=== PATIENT | female | born 1990 | race Caucasian/White ===

== ENCOUNTER 2019-10-22 10:04 | Observation (INO) | payer OTHER ==
[2019-10-22] MEDS ORDERED: Ephedrine Sulfate 50 MG/ML IV PRN (12:16)
[2019-10-22] MEDS ORDERED: Lactated Ringers 1,000 ML IV ONE (12:16)
[2019-10-22] MEDS ORDERED: OB EPIDURAL NAROPIN/SUFENTANIL IN NACL EPIDURAL PRN (12:16)
[2019-10-22] MEDS ORDERED: PITOCIN 30 UNITS/ LR 500 ML 30 UNITS/500 ML IV.SOLN. IV SCH (12:30)
[2019-10-22 12:38] LABS: Hematocrit 36.9 % (35-47); Hemoglobin 11.7 gm/dl (12.0-16.0); Mean Cell Volume 87.9 fl (78-100); Mean Corpuscular Hemoglobin 27.9 pg (26-32); Mean Corpuscular Hgb Concent. 31.7 g/dl (32-36); Mean Platelet Volume 11.6 fl (7.5-11.0); Platelet Count 242 K/mm3 (150-450); Red Cell Distribution Width 15.1 % (11.5-14.0)
[2019-10-22 12:58] VITALS: BP 123/75
[2019-10-22 14:17] LABS: Amphetamine,Urine NEGATIVE (NEGATIVE); Barbiturate,Urine NEGATIVE (NEGATIVE); Benzodiazepine,Urine NEGATIVE (NEGATIVE); Cocaine,Urine NEGATIVE (NEGATIVE); Methadone,Urine NEGATIVE (NEGATIVE); Opiate,Urine NEGATIVE (NEGATIVE); PCP,Urine NEGATIVE (NEGATIVE); THC,Urine NEGATIVE (NEGATIVE)
[2019-10-22 15:37] VITALS: PULSE 87
[2019-10-22 15:41] LABS: BAND 1 % (0.0-2.0); Lymphocytes 18 % (24-44); Monocyte 7 % (0.0-12.0); Neutrophils 74 % (36.0-66.0); Platelet Estimate NORMAL (NORMAL); Total Cells Counted 100
== END 2019-10-22 16:12 | disposition home or self-care (01) ==
LOC: MED SURG 10:04 → OB 10:05
PROVIDERS: ADMIT Family Medicine; ATTEND Family Medicine
DX: Z34.83 Encounter for supervision of other normal pregnancy, third trimester (principal)
CPT/HCPCS: 36415; 80307; 84112; 85025; 87340; G0378

== ENCOUNTER 2019-10-23 16:19 | Observation (INO) | payer OTHER ==
[2019-10-23 17:44] LABS: Appearance CLOUDY (CLEAR); Bacteria FEW /HPF (NEGATIVE); Bilirubin NEGATIVE (NEGATIVE); Blood LARGE Ery/ul (0-5); Epithelial Cells PACKED /HPF (FEW); Glucose NEGATIVE (NEGATIVE); Ketones TRACE (NEGATIVE); Leukocyte Esterase MODERATE (NEGATIVE); Mucus SLIGHT /HPF (NEGATIVE); Nitrite NEGATIVE (NEGATIVE); Protein,Urine Dip 100 (Negative); RBC 51-100 /HPF (0-2); Urobilinogen 2 mg/dL (0-1); WBC 51-100 /HPF (0-5)
[2019-10-23] MEDS ORDERED: Lactated Ringers 500 ML IV ONE ×2 (18:21→18:22)
[2019-10-23 20:39] VITALS: BP 118/58; PULSE 96; O2SAT 97
--- NOTE | 2019-10-24 08:42 | XRAY ---
Indication: Abdomen pain. Bleeding. 2-dimensional OB ultrasound performed. Comparison: None There is a single viable intrauterine in cephalic presentation. heart rate 126 bpm. Placenta is left lateral without abnormal retroplacental fluid. BPD measures 9.19 cm corresponding to 37 weeks 2 days. HC measures 32.49 cm corresponding to 36 weeks 6 days. AC measures 32.77 cm corresponding to 36 weeks 5 days. FL measures 7.03 cm corresponding to 36 weeks 0 days. JERICHO is 15.6 cm. Impression: Single viable intrauterine with mean gestational age 36 weeks 5 days. No acute findings. Comment: Preliminary report was given.
== END 2019-10-23 21:38 | disposition home or self-care (01) ==
LOC: OB 16:19
PROVIDERS: ADMIT Family Medicine; ATTEND Family Medicine
DX: Z34.83 Encounter for supervision of other normal pregnancy, third trimester (principal)
CPT/HCPCS: 59025; 76816; 81001; 87086; G0378

== ENCOUNTER 2019-10-25 09:44 | Inpatient (IN) | payer OTHER ==
[2019-10-25] MEDS ORDERED: XYLOCAINE 1% HCL 20 ML MDV IJ PRN (14:03)
[2019-10-25] MEDS ORDERED: Ephedrine Sulfate 50 MG/ML IV PRN (14:03)
[2019-10-25] MEDS ORDERED: OB EPIDURAL NAROPIN/SUFENTANIL IN NACL EPIDURAL PRN (14:03)
[2019-10-25] MEDS ORDERED: Lactated Ringers 1,000 ML IV ONE (14:03)
[2019-10-25 14:40] LABS: Hematocrit 37.1 % (35-47); Hemoglobin 11.5 gm/dl (12.0-16.0); Mean Cell Volume 88.5 fl (78-100); Mean Corpuscular Hemoglobin 27.4 pg (26-32); Mean Platelet Volume 10.9 fl (7.5-11.0); Platelet Count 208 K/mm3 (150-450); Red Blood Count 4.19 M/mm3 (4.1-5.4); Red Cell Distribution Width 15.2 % (11.5-14.0); White Blood Count 12.2 K/mm3 (4.0-10.5)
[2019-10-25 14:59] LABS: BAND 12 % (0.0-2.0); Lymphocytes 14 % (24-44); Monocyte 6 % (0.0-12.0); Neutrophils 68 % (36.0-66.0); Total Cells Counted 100
[2019-10-25 15:00] LABS: Absolute Neutrophil Ct (ANC) 9.78 (1.4-6.9); Platelet Estimate NORMAL (NORMAL)
[2019-10-25] MEDS: Lactated Ringers 1,000 ML IV SCH ×2 (15:47→20:57)
[2019-10-25] MEDS: PITOCIN 30 UNITS/ LR 500 ML 30 UNITS/500 ML IV.SOLN. IV SCH (19:30)
[2019-10-25] MEDS ORDERED: BRETHINE 1 MG/ML SQ PRN (19:56)
[2019-10-25] MEDS ORDERED: PITOCIN 30 UNITS/ LR 500 ML 30 UNITS/500 ML IV.SOLN. IV SCH (20:00)
[2019-10-25 20:32] LABS: Amphetamine,Urine NEGATIVE (NEGATIVE); Barbiturate,Urine NEGATIVE (NEGATIVE); Benzodiazepine,Urine NEGATIVE (NEGATIVE); Cocaine,Urine NEGATIVE (NEGATIVE); Methadone,Urine NEGATIVE (NEGATIVE); Opiate,Urine NEGATIVE (NEGATIVE); PCP,Urine NEGATIVE (NEGATIVE); THC,Urine NEGATIVE (NEGATIVE)
[2019-10-26] MEDS ORDERED: Pepcid 20 MG VIAL IV PRN
[2019-10-26] MEDS ORDERED: Phenergan 25 MG INJ IV PRN
[2019-10-26] MEDS: Lactated Ringers 1,000 ML IV SCH ×2 (00:48→09:03)
[2019-10-26] MEDS: PITOCIN 30 UNITS/ LR 500 ML 30 UNITS/500 ML IV.SOLN. IV SCH (09:06)
[2019-10-26] MEDS ORDERED: Dulcolax 10 MG SUPP PR PRN (11:19)
[2019-10-26] MEDS ORDERED: TUCKS TP PRN (11:19)
[2019-10-26] MEDS ORDERED: CORTISONE 1% CREAM TP PRN (11:19)
[2019-10-26] MEDS ORDERED: NORCO 5/325 MG PO PRN (11:19)
[2019-10-26] MEDS ORDERED: Dermoplast Spray TP PRN (11:19)
[2019-10-26] MEDS ORDERED: Restoril 15 MG PO PRN (11:19)
[2019-10-26] MEDS ORDERED: Anucort-HC SUPPOSITORY PR PRN (11:19)
[2019-10-26] MEDS ORDERED: Mylicon 80MG PO PRN (11:19)
[2019-10-26] MEDS ORDERED: LANSINOH 40 GM TOP PRN (11:19)
[2019-10-26] MEDS: TYLENOL EXTRA STRENGTH 500 MG PO PRN (14:13)
[2019-10-26] MEDS: MOTRIN 400 MG PO PRN (19:03)
[2019-10-26] MEDS: Colace 100 MG PO SCH (22:12)
[2019-10-27 03:20] VITALS: O2SAT 99
[2019-10-27 06:06] LABS: Hematocrit 31.9 % (35-47); Hemoglobin 9.8 gm/dl (12.0-16.0); Mean Cell Volume 90.9 fl (78-100); Mean Corpuscular Hemoglobin 27.9 pg (26-32); Mean Corpuscular Hgb Concent. 30.7 g/dl (32-36); Mean Platelet Volume 10.6 fl (7.5-11.0); Platelet Count 198 K/mm3 (150-450); Red Blood Count 3.51 M/mm3 (4.1-5.4); Red Cell Distribution Width 15.5 % (11.5-14.0); White Blood Count 12.3 K/mm3 (4.0-10.5)
[2019-10-27 06:39] LABS: Lymphocytes 25 % (24-44); Neutrophils 75 % (36.0-66.0); Platelet Estimate NORMAL (NORMAL); Polychromasia 1+; Total Cells Counted 100
[2019-10-27] MEDS: MOTRIN 400 MG PO PRN ×3 (08:05→23:08)
[2019-10-27] MEDS ORDERED: FERREX 150 PO SCH (10:00)
[2019-10-27] MEDS: Colace 100 MG PO SCH ×2 (11:28→23:07)
[2019-10-27] MEDS: TYLENOL EXTRA STRENGTH 500 MG PO PRN ×2 (14:01→23:08)
[2019-10-28] MEDS: TYLENOL EXTRA STRENGTH 500 MG PO PRN (03:33)
--- NOTE | 2019-10-28 08:37 | PCM.DS ---
Discharge Summary Date of Admission: 10/25/19 14:03 Admitting Physician: CHANG ALICEA Primary Care Provider: CHANG ALICEA Allergies Allergies No Known Drug Allergies Allergy (Verified 10/25/19 10:02) Hospital Summary - Hospital Course Hospital Course: Pt came in as 28 yo at 37w 4d due to active labor - had been netta regularly for 2-3 days but having increased pain with contractions. Hx cyrosurgery since her last delivery and concern that her cervical change was retarded due to the surgery. AROM done with small amt clear fluid. overnight RNs concerned about decreased variability. FHT good in the morning; pt had had very little fluid out, so AROM done again with mod amount of fluid out. She progressed quickly with a small amount of pitocin and delivered 6lb female over intact perineum (see Dr. Brady' delivery note for full details). Pt had hx delivery at 33 weeks so was on vaginal progesterone until 36 weeks. Pt having intermittent uterine pain. She is . Will go home today with baby and f/u with me in 4-6 weeks. - Vitals & Intake/Output Vital Signs: Vital Signs Temperature 97.9 F 10/28/19 03:30 Pulse Rate 75 10/28/19 03:30 Respiratory Rate 16 10/28/19 03:30 Blood Pressure 137/73 10/28/19 03:30 O2 Sat by Pulse Oximetry 99 10/27/19 02:00 Intake & Output: Intake & Output 10/25/19 10/26/19 10/27/19 10/28/19 11:59 11:59 11:59 11:59 Intake Total 4240 780 1540 Output Total 3550 Balance 187 030 9011 Weight 88.451 kg 88.451 kg - Lab Result Diagrams: 10/27/19 05:55 Micro Results-Entire Visit: Microbiology 10/25/19 18:36 Urine Culture - Final Urine, Indwelling Catheter NO GROWTH - Procedures and Test Procedures and Tests throughout Hospitalization: Therapy Orders & Screens 10/26/19 10:30 Standby ROUTINE Comment: Diagnosis: Labor Discharge Exam General Appearance: no apparent distress, alert Neurologic Exam: oriented x 3, cooperative Eye Exam: eyes nml inspection Ears, Nose, Throat Exam: moist mucous membranes Neck Exam: normal inspection Respiratory Exam: normal breath sounds, lungs clear, No crackles/rales, No rhonchi, No wheezing Cardiovascular Exam: regular rate/rhythm, normal heart sounds, No murmur Gastrointestinal/Abdomen Exam: soft, other (fundus firm under umbilicus), No tenderness, No distention Extremity Exam: No pedal edema, No swelling Skin Exam: normal color, warm, dry, No rash Final Diagnosis/Problem List - Final Discharge Diagnosis/Problem (1) Vaginal delivery Current Visit: Yes Status: Acute Assessment & Plan: Doing great, PPD #2, doing well. Code(s): O80 - ENCOUNTER FOR FULL-TERM UNCOMPLICATED DELIVERY (2) Anemia Current Visit: Yes Status: Acute Assessment & Plan: home on Fe Code(s): D64.9 - ANEMIA, UNSPECIFIED - Discharge Disposition: Home, Self-Care Condition: Good Prescriptions: New Ferrous Sulfate 325 mg PO DAILY #30 tablet Ibuprofen 800 mg PO TID PRN #35 tablet PRN Reason: Pain Continue Escitalopram Oxalate 10 mg [Lexapro 10 MG] 10 mg PO DAILY Pnv 112/Iron/Folic/Om3/Dha/Epa [Vitafol Gummies] 1 gum PO DAILY Follow up with: CHANG ALICEA [Primary Care Provider] - 1 Week
[2019-10-28 11:32] VITALS: BP 125/75; PULSE 83
== END 2019-10-28 11:10 | disposition home or self-care (01) | DRG 807 ==
LOC: OB 09:44 → OBSVTOIN 14:03 → OB 14:03
PROVIDERS: ADMIT Family Medicine; ATTEND Family Medicine
PROC: 10E0XZZ Delivery of Products of Conception, External Approach (ICD-10-PCS; principal; 2019-10-26)
DX: O69.81X0 Labor and delivery complicated by cord around neck, without compression, not applicable or unspecified (principal); Z37.0 Single live birth; Z3A.37 37 weeks gestation of pregnancy
CPT/HCPCS: 36415; 59025; 76816; 80307; 81001; 84112; 85025; 87086; 94799; G0378; J2590; J2795; A9270-GY

== ENCOUNTER 2021-08-22 09:05 | Observation (INO) | payer OTHER ==
[2021-08-22 10:05] VITALS: BP 112/61; PULSE 114; O2SAT 97
== END 2021-08-22 10:28 | disposition home or self-care (01) ==
LOC: OB.NST 09:05 → MED SURG 09:41
PROVIDERS: ADMIT Family Medicine; ATTEND Family Medicine
DX: Z34.83 Encounter for supervision of other normal pregnancy, third trimester (principal); Z3A.36 36 weeks gestation of pregnancy
CPT/HCPCS: G0378

== ENCOUNTER 2021-08-28 10:44 | Observation (INO) | payer OTHER ==
[2021-08-28] MEDS ORDERED: Lactated Ringers 1,000 ML IV ONE ×2 (10:55→13:26)
[2021-08-28 11:09] LABS: Appearance CLEAR (CLEAR); Bilirubin NEGATIVE (NEGATIVE); Glucose NEGATIVE (NEGATIVE); Ketones NEGATIVE (NEGATIVE); Nitrite NEGATIVE (NEGATIVE); Protein,Urine Dip NEGATIVE (Negative); RBC TRACE-INTACT Ery/ul (0-5); Urobilinogen 0.2 mg/dL (0-1)
[2021-08-28 11:10] LABS: Dipstick done @ ? MAIN LAB
[2021-08-28 11:11] LABS: Mucus SLIGHT /HPF (NEGATIVE); RBC 0-2 /HPF (0-2)
[2021-08-28 11:12] LABS: Bacteria RARE /HPF (NEGATIVE); Urine Cultured Indicated? YES
[2021-08-28 11:20] VITALS: PULSE 105; O2SAT 96
[2021-08-28 11:35] LABS: Amphetamine,Urine NEGATIVE (NEGATIVE); Barbiturate,Urine NEGATIVE (NEGATIVE); Benzodiazepine,Urine NEGATIVE (NEGATIVE); Cocaine,Urine NEGATIVE (NEGATIVE); Methadone,Urine NEGATIVE (NEGATIVE); Opiate,Urine NEGATIVE (NEGATIVE); PCP,Urine NEGATIVE (NEGATIVE); THC,Urine NEGATIVE (NEGATIVE)
== END 2021-08-28 12:25 | disposition home or self-care (01) ==
LOC: OB.NST 10:44 → UNDOADMOB 10:51 → OB 10:51 → MED SURG 10:51
PROVIDERS: ADMIT Family Medicine; ATTEND Family Medicine
DX: Z34.83 Encounter for supervision of other normal pregnancy, third trimester (principal); Z3A.37 37 weeks gestation of pregnancy
CPT/HCPCS: 80307; 81015; 87086; 99213; G0378

== ENCOUNTER 2021-09-01 19:28 | Inpatient (IN) | payer OTHER ==
[2021-09-01 20:03] LABS: Appearance CLEAR (CLEAR)
[2021-09-01 20:05] LABS: Bilirubin NEGATIVE (NEGATIVE); Dipstick done @ ? MAIN LAB; Glucose NEGATIVE (NEGATIVE); Ketones NEGATIVE (NEGATIVE); Nitrite NEGATIVE (NEGATIVE); Protein,Urine Dip NEGATIVE (Negative); RBC NEGATIVE Ery/ul (0-5); Specific Gravity 1.025 (1.005-1.025); Urobilinogen 0.2 mg/dL (0-1)
[2021-09-01 20:06] LABS: Epithelial Cells RARE /HPF (FEW); Mucus SLIGHT /HPF (NEGATIVE); WBC 0-2 /HPF (0-5)
[2021-09-01 20:07] LABS: Urine Cultured Indicated? NO
[2021-09-01 20:19] LABS: Amnisure Rupture of Membranes Negative
[2021-09-01] MEDS ORDERED: Zofran 4 MG/2 ML VIAL IV PRN (21:51)
[2021-09-01] MEDS ORDERED: XYLOCAINE 1% HCL 20 ML MDV IJ PRN (21:51)
[2021-09-01] MEDS ORDERED: PITOCIN 30 UNITS/ LR 500 ML 30 UNITS/500 ML PLAST..BAG IV SCH (22:00)
[2021-09-01 22:21] LABS: Basophil (Absolute #) 0.05 x10^3/uL (0-0.4); Eosinophil % 0.9 % (0.00-5.0); Eosinophil (Absolute #) 0.11 x10^3/uL (0-0.5); Hematocrit 37.4 % (35-47); Hemoglobin 12.1 g/dL (12.0-16.0); Lymphocyte (Absolute #) 2.86 x10^3/uL (1.0-4.6); Lymphocytes % 24.6 % (24.0-44.0); Mean Cell Volume 89.5 fL (78-100); Mean Corpuscular Hemoglobin 28.9 pg (26-32); Mean Corpuscular Hgb Concent. 32.4 g/dL (32-36); Mean Platelet Volume 10.9 fL (7.5-11.0); Monocyte (Absolute #) 1.29 x10^3/uL (0.0-1.3); Monocytes % 11.1 % (0.0-12.0); Neutrophil % 61.2 % (36.0-66.0); Platelet Count 188 x10^3/uL (150-450); Red Blood Count 4.18 x10^6/uL (4.1-5.4); Red Cell Distribution Width 14.2 % (11.5-14.0); White Blood Count 11.6 x10^3/uL (4.0-10.5)
[2021-09-01] MEDS ORDERED: Lactated Ringers 1,000 ML IV ONE (22:35)
[2021-09-01] MEDS ORDERED: Ephedrine Sulfate 50 MG/ML IV PRN (22:35)
[2021-09-01] MEDS ORDERED: FENTANYL 2 MCG-BUPIV 0.125%-NS 250 ML Epidur 250 ML EPIDURAL SCH (22:45)
[2021-09-01 23:05] LABS: ABO TYPING A; Antibody Screen NEGATIVE (NEGATIVE); RH TYPING POSITIVE
[2021-09-02] MEDS: Lactated Ringers 1,000 ML IV SCH ×2 (00:01→08:05)
[2021-09-02] MEDS ORDERED: Dulcolax 10 MG SUPP PR PRN (09:19)
[2021-09-02] MEDS ORDERED: TUCKS TP PRN (09:19)
[2021-09-02] MEDS ORDERED: Ambien 10 MG PO PRN (09:19)
[2021-09-02] MEDS ORDERED: CORTISONE 1% CREAM TP PRN (09:19)
[2021-09-02] MEDS ORDERED: LANSINOH 40 GM TOP PRN (09:19)
[2021-09-02] MEDS ORDERED: Mylicon 80MG PO PRN (09:19)
[2021-09-02] MEDS ORDERED: TYLENOL EXTRA STRENGTH 500 MG PO PRN (09:19)
[2021-09-02] MEDS ORDERED: Dermoplast Spray TP PRN (09:19)
[2021-09-02] MEDS ORDERED: Anucort-HC SUPPOSITORY PR PRN (09:19)
[2021-09-02] MEDS ORDERED: NORCO 5/325 MG PO PRN (09:19)
[2021-09-02] MEDS ORDERED: Adacel Vial IM ONE (12:00)
[2021-09-02] MEDS: TYLENOL EXTRA STRENGTH 500 MG PO PRN ×3 (13:03→19:59)
[2021-09-02] MEDS: MOTRIN 400 MG PO PRN ×2 (14:27→21:35)
[2021-09-02] MEDS: Docusate Sodium 100 MG PO SCH (20:00)
[2021-09-03] MEDS: TYLENOL EXTRA STRENGTH 500 MG PO PRN ×2 (02:51→10:03)
[2021-09-03] MEDS: MOTRIN 400 MG PO PRN ×3 (03:18→17:43)
[2021-09-03 04:38] LABS: Absolute Neutrophil Ct (ANC) 7.28 x10^3/uL (1.4-6.9); Basophil (Absolute #) 0.04 x10^3/uL (0-0.4); Eosinophil % 1.6 % (0.00-5.0); Eosinophil (Absolute #) 0.18 x10^3/uL (0-0.5); Hematocrit 34.1 % (35-47); Hemoglobin 10.7 g/dL (12.0-16.0); Lymphocyte (Absolute #) 2.67 x10^3/uL (1.0-4.6); Lymphocytes % 23.4 % (24.0-44.0); Mean Cell Volume 91.7 fL (78-100); Mean Corpuscular Hemoglobin 28.8 pg (26-32); Mean Corpuscular Hgb Concent. 31.4 g/dL (32-36); Mean Platelet Volume 10.4 fL (7.5-11.0); Monocyte (Absolute #) 1.08 x10^3/uL (0.0-1.3); Monocytes % 9.5 % (0.0-12.0); Neutrophil % 63.9 % (36.0-66.0); Platelet Count 157 x10^3/uL (150-450); Red Blood Count 3.72 x10^6/uL (4.1-5.4); Red Cell Distribution Width 14.2 % (11.5-14.0); White Blood Count 11.4 x10^3/uL (4.0-10.5)
--- NOTE | 2021-09-03 08:54 | PCM.DS ---
Discharge Summary Date of Admission: 09/01/21 21:30 Admitting Physician: JAEL DE LA PAZ Consults: Consults on Case 09/01/21 22:36 Notify Anesthesia Provider PRN Primary Care Provider: JAEL DE LA PAZ Allergies Allergies No Known Drug Allergies Allergy (Verified 10/25/19 10:02) Hospital Summary - Hospital Course Hospital Course: patient arrived in spontaneous labor at 38 wks, had uncomplicated with no repair, mild lochia and minimal pain. she is and well bonded with her Chelle. - Vitals & Intake/Output Vital Signs: Vital Signs Temperature 97.7 F 09/03/21 03:35 Pulse Rate 80 09/03/21 03:35 Respiratory Rate 18 09/03/21 03:35 Blood Pressure 146/63 09/03/21 03:35 O2 Sat by Pulse Oximetry 96 09/02/21 13:15 Intake & Output: Intake & Output 08/31/21 09/01/21 09/02/21 09/03/21 11:59 11:59 11:59 11:59 Intake Total 5025 500 Output Total 600 Balance 4425 500 Weight 93.894 kg - Lab Result Diagrams: 09/03/21 04:34 Lab Results-Last 24 Hrs: Lab Results-Last 24 Hours 09/03/21 Range/Units 04:34 WBC 11.4 H (4.0-10.5) x10^3/uL RBC 3.72 L (4.1-5.4) x10^6/uL Hgb 10.7 L (12.0-16.0) g/dL Hct 34.1 L (35-47) % MCV 91.7 (78-100) fL MCH 28.8 (26-32) pg MCHC 31.4 L (32-36) g/dL RDW 14.2 H (11.5-14.0) % Plt Count 157 (150-450) x10^3/uL MPV 10.4 (7.5-11.0) fL Gran % 63.9 (36.0-66.0) % Immature Gran % (Auto) 1.2 H (0.00-0.4) % Nucleat RBC Rel Count 0.0 (0.00-0.1) % Eos # (Auto) 0.18 (0-0.5) x10^3/uL Immature Gran # (Auto) 0.14 H (0.00-0.03) x10^3u/L Absolute Lymphs (auto) 2.67 (1.0-4.6) x10^3/uL Absolute Monos (auto) 1.08 (0.0-1.3) x10^3/uL Absolute Nucleated RBC 0.00 (0.00-0.01) x10^3u/L Lymphocytes % 23.4 L (24.0-44.0) % Monocytes % 9.5 (0.0-12.0) % Eosinophils % 1.6 (0.00-5.0) % Basophils % 0.4 (0.0-0.4) % Absolute Granulocytes 7.28 H (1.4-6.9) x10^3/uL Basophils # 0.04 (0-0.4) x10^3/uL Discharge Exam General Appearance: no apparent distress, alert Respiratory Exam: normal breath sounds, lungs clear, No respiratory distress Cardiovascular Exam: regular rate/rhythm, normal heart sounds Gastrointestinal/Abdomen Exam: soft, other (fundus firm), No tenderness, No mass Extremity Exam: normal inspection, normal range of motion Skin Exam: normal color, warm, dry Final Diagnosis/Problem List - Final Discharge Diagnosis/Problem (1) Vaginal delivery Current Visit: No Status: Acute Code(s): O80 - ENCOUNTER FOR FULL-TERM UNCOMPLICATED DELIVERY (2) () Current Visit: Yes Status: Acute Code(s): Z78.9 - OTHER SPECIFIED HEALTH STATUS - Discharge Disposition: Home, Self-Care Condition: Stable Prescriptions: Continue Escitalopram Oxalate [Lexapro] 20 mg PO DAILY Pnv 112/Iron/Folic/Om3/Dha/Epa [Vitafol Gummies] 1 gum PO DAILY Follow up with: JAEL DE LA PAZ MD [Primary Care Provider] -
[2021-09-03] MEDS: FERREX 150 PO SCH ×3 (09:18→10:14)
[2021-09-03] MEDS: Docusate Sodium 100 MG PO SCH ×3 (09:18→10:14)
[2021-09-03 09:56] VITALS: O2SAT 98
[2021-09-03 10:31] LABS: HBsAg Screen Negative (Negative)
[2021-09-03 16:17] VITALS: BP 131/75; PULSE 82
== END 2021-09-03 18:30 | disposition home or self-care (01) | DRG 807 ==
LOC: OB 19:28 → INTOOBSV 19:30 → OBSVTOIN 19:30 → OB 21:30 → OBSVTOIN 21:30
PROVIDERS: ADMIT Family Medicine; ATTEND Family Medicine
PROC: 10E0XZZ Delivery of Products of Conception, External Approach (ICD-10-PCS; principal; 2021-09-02)
DX: O80 Encounter for full-term uncomplicated delivery (principal); Z37.0 Single live birth; Z3A.38 38 weeks gestation of pregnancy
CPT/HCPCS: 36415; 81015; 84112; 85025; 86850; 86900; 86901; 87340; 90715; J2590; A9270-GY

== ENCOUNTER 2022-05-20 10:17 | Emergency (ER) | payer OTHER ==
[2022-05-20 10:57] LABS: Absolute Neutrophil Ct (ANC) 5.87 x10^3/uL (1.4-6.9); BASOPHIL % 0.8 % (0.0-0.4); Basophil (Absolute #) 0.08 x10^3/uL (0-0.4); Eosinophil % 4.7 % (0.00-5.0); Eosinophil (Absolute #) 0.48 x10^3/uL (0-0.5); Hematocrit 43.3 % (35-47); Hemoglobin 14.1 g/dL (12.0-16.0); IMMATURE GRAN # 0.06 x10^3u/L (0.00-0.03); IMMATURE GRAN % 0.6 % (0.00-0.4); Lymphocyte (Absolute #) 2.83 x10^3/uL (1.0-4.6); Lymphocytes % 27.9 % (24.0-44.0); Mean Cell Volume 88.4 fL (78-100); Mean Corpuscular Hemoglobin 28.8 pg (26-32); Mean Corpuscular Hgb Concent. 32.6 g/dL (32-36); Mean Platelet Volume 9.8 fL (7.5-11.0); Monocyte (Absolute #) 0.84 x10^3/uL (0.0-1.3); Monocytes % 8.3 % (0.0-12.0); Neutrophil % 57.7 % (36.0-66.0); Platelet Count 335 x10^3/uL (150-450); Red Cell Distribution Width 12.2 % (11.5-14.0); White Blood Count 10.2 x10^3/uL (4.0-10.5)
[2022-05-20 11:04] LABS: HCG SERUM TEST NEGATIVE (NEGATIVE)
[2022-05-20 11:17] LABS: Appearance Clear (Clear); Bacteria None Seen /HPF (None Seen); Bilirubin Negative (Negative); Blood Trace (Negative); Epithelial Cells None Seen /HPF (None Seen); Glucose, Urine Negative (Negative); Hyaline Casts NONE SEEN /LPF (0-2); Ketones Negative (Negative); Leukocyte Esterase Trace (Negative); Nitrite Negative (Negative); Protein,Urine Dip Negative (Negative); RBC 0-2 /HPF (0-5); Specific Gravity 1.015 (1.005-1.030); Urobilinogen 0.2 mg/dL (0.2)
[2022-05-20 11:22] LABS: ADD URINE CULTURE? NO (NO)
[2022-05-20 11:53] LABS: ALBUMIN 4.5 g/dL (3.5-5.0); ALKALINE PHOSPHATASE 99 U/L (38-126); AMYLASE 64 U/L (30-110); ANION GAP 12.7 MEQ/L (5-15); BLOOD UREA NITROGEN 11 mg/dL (7-17); CHLORIDE 104 mmol/L (98-107); Calcium 9.5 mg/dL (8.4-10.2); Carbon Dioxide 27 mmol/L (22-30); Creatinine 1 0.56 mg/dL (0.52-1.04); EST GLOMERULAR FILTRATION RATE > 60.0 ML/MIN; Glucose 97 mg/dL (74-106); LIPASE 74 U/L (23-300); Potassium 4.1 mmol/L (3.5-5.1); SGOT/AST 27 U/L (14-36); SGPT/ALT 26 U/L (0-35); SODIUM 140 mmol/L (137-145); Total Protein 7.8 g/dL (6.3-8.2)
[2022-05-20 12:24] VITALS: O2SAT 99
--- NOTE | 2022-05-20 12:24 | ERPHSYRPT ---
- History of Present Illness Historian: patient Exam Limitations: no limitations Patient Subjective Stated Complaint: pt reports lower bilat abd pain for one month, pt was seen at [facility] and treated for UTI but abd pain persisted, pt is waiting for prior auth from her insurance for CT. Triage Nursing Assessment: pt is aox3, afebrile, pupils perrl, resps easy and non labored, cap refill < 3 seconds, radial pulses strong and equal, pt abd soft, slightly distended, tender to bilat lower quads, bowel sounds normoactive x 4, pt skin pink warm dry. Physician History: 31 yo WF w generalized abdominal pain x 1 month. pain is sharp, 5/10 on scale, and nothing makes better/worse. She has been to the clinic x2 and also Dr. De La Paz x1. Dr. De La Paz wants her to have a CT scan, but it has not been approved by her insurance. She has nausea wo vomiti ng/diarrhea/melena/hematochezia/dysuria/hematuria. Fever/cough/coryza/ also denied. Pt has an IUD in place, and no abdominal surgeries reported. Timing/Duration: other (1month) Activities at Onset: rest Quality: sharpness Abdominal Pain Onset Location: generalized abdomen Pain Radiation: no radiation Severity of Pain-Max: severe Severity of Pain-Current: moderate Modifying Factors: Improves With: nothing Associated Symptoms: denies symptoms, nausea Previous symptoms: same symptoms as today Allergies/Adverse Reactions: No Known Drug Allergies Allergy (Verified 10/25/19 10:02) Home Medications: Escitalopram Oxalate [Lexapro] 20 mg PO DAILY 10/25/19 [History] Pnv 112/Iron/Folic/Om3/Dha/Epa [Vitafol Gummies] 1 gum PO DAILY 10/25/19 [History] Hx Tetanus, Diphtheria Vaccination/Date Given: Yes Hx Influenza Vaccination/Date Given: Yes Hx Pneumococcal Vaccination/Date Given: No Immunizations Up to Date: Yes Travel Risk - International Travel Have you traveled outside of the country in past 3 weeks: No - Coronavirus Screening Are you exhibiting any of the following symptoms?: No Close contact with a COVID-19 positive Pt in past 14-21 Days: No - Vaccine Status Have you recieved a Covid-19 vaccination: No - Review of Systems Constitutional: No Symptoms Eyes: No Symptoms Ears, Nose, & Throat: No Symptoms Respiratory: No Symptoms Cardiac: No Symptoms Genitourinary Symptoms: No Symptoms Musculoskeletal: No Symptoms Skin: No Symptoms Neurological: No Symptoms Psychological: No Symptoms Endocrine: No Symptoms Hematologic/Lymphatic: No Symptoms Immunological/Allergic: No Symptoms - Past Medical History Pertinent Past Medical History: Yes Neurological History: No Pertinent History ENT History: No Pertinent History Cardiac History: Congenital Heart Disease Respiratory History: No Pertinent History Endocrine Medical History: No Pertinent History Musculoskeletal History: No Pertinent History GI Medical History: No Pertinent History History: No Pertinent History Psycho-Social History: Depression Female Reproductive Disorders: Cervical Cancer Other Medical History: cervical cancer: pt states immediatley after her first delivery they froze the cells. pt also states she has had one doctor tell her that she has had a whole in between the chambers of her heart, but had another Dr tell her she has no problems - Past Surgical History Past Surgical History: No Neuro Surgical History: No Pertinent History Respiratory: No Pertinent History Gastrointestinal: No Pertinent History Musculoskeletal: No Pertinent History Female Surgical History: No Pertinent History - Social History Smoking Status: Current every day smoker How long have you smoked: 15 yrs Exposure to second hand smoke: No Drug Use: none Patient Lives Alone: No - Female History Hx Last Menstrual Period: IUD Hx Now: No - Nursing Vital Signs Nursing Vital Signs: Initial Vital Signs Temperature 98.1 F 05/20/22 10:21 Pulse Rate 79 05/20/22 10:21 Respiratory Rate 18 05/20/22 10:21 Blood Pressure 133/76 05/20/22 10:21 O2 Sat by Pulse Oximetry 99 05/20/22 10:21 Pain Scale Pain Intensity 5 Borderline hypertensive - Physical Exam General Appearance: no apparent distress Eye Exam: PERRL/EOMI, eyes nml inspection Ears, Nose, Throat Exam: normal ENT inspection, TMs normal, pharynx normal Neck Exam: normal inspection, non-tender, supple, full range of motion, No meningismus, No mass, No Brudzinski, No Kernig's Respiratory Exam: normal breath sounds, lungs clear, airway intact, No respiratory distress Cardiovascular Exam: regular rate/rhythm, normal heart sounds, normal peripheral pulses, capillary refill <2 sec, No murmur Gastrointestinal/Abdomen Exam: soft, normal bowel sounds, tenderness (Mild supra-pubic TTP wo guarding or rebound) Back Exam: normal inspection, normal range of motion, No CVA tenderness, No vertebral tenderness Extremity Exam: normal inspection, normal range of motion Neurologic Exam: alert, oriented x 3, cooperative, facilities engineer II-XII nml as tested, normal mood/affect, nml cerebellar function, nml station & gait, sensation nml Skin Exam: normal color, warm, dry Lymphatic Exam: No adenopathy SpO2 Interpretation: normal SpO2: 99 O2 Delivery: Room Air - Course Nursing assessment & vital signs reviewed: Yes - CT Exams Abdomen/Pelvis CT Interpretation: Discussed w/radiologist (MICHELLE/IUD) - Radiology Ultrasound Exam Pelvis Ultrasound: discussed w/radiologist (IUD in place/nabothian cyst) Ordered Tests: Active Orders 24 hr Category Date Time Status ABDOMEN AND PELVIS W CONTRAST [CT] Stat Exams 05/20/22 12:02 Completed PELVIS TRANS VAGINAL [US] Stat Exams 05/20/22 11:32 Completed AMYLASE Stat Lab 05/20/22 10:45 Completed CBC W DIFF Stat Lab 05/20/22 10:45 Completed CMP Stat Lab 05/20/22 10:45 Completed HCG QUALITATIVE, SERUM Stat Lab 05/20/22 10:45 Completed LIPASE Stat Lab 05/20/22 10:45 Completed UA W/RFX UR CULTURE Stat Lab 05/20/22 10:41 Completed Lab/Rad Data: Laboratory Result Diagrams 05/20/22 10:45 05/20/22 10:45 Laboratory Results 05/20/22 05/20/22 05/20/22 Range/Units 11:47 10:45 10:45 WBC (4.0-10.5) x10^3/uL RBC (4.1-5.4) x10^6/uL Hgb (12.0-16.0) g/dL Hct (35-47) % MCV (78-100) fL MCH (26-32) pg MCHC (32-36) g/dL RDW (11.5-14.0) % Plt Count (150-450) x10^3/uL MPV (7.5-11.0) fL Gran % (36.0-66.0) % Immature Gran % (Auto) (0.00-0.4) % Nucleat RBC Rel Count (0.00-0.1) % Eos # (Auto) (0-0.5) x10^3/uL Immature Gran # (Auto) (0.00-0.03) x10^3u/L Absolute Lymphs (auto) (1.0-4.6) x10^3/uL Absolute Monos (auto) (0.0-1.3) x10^3/uL Absolute Nucleated RBC (0.00-0.01) x10^3u/L Lymphocytes % (24.0-44.0) % Monocytes % (0.0-12.0) % Eosinophils % (0.00-5.0) % Basophils % (0.0-0.4) % Absolute Granulocytes (1.4-6.9) x10^3/uL Basophils # (0-0.4) x10^3/uL Sodium 140 (137-145) mmol/L Potassium 4.1 (3.5-5.1) mmol/L Chloride 104 (98-107) mmol/L Carbon Dioxide 27 (22-30) mmol/L Anion Gap 12.7 (5-15) MEQ/L BUN 11 (7-17) mg/dL Creatinine 0.56 (0.52-1.04) mg/dL Estimated GFR > 60.0 ML/MIN Glucose 97 (74-106) mg/dL Calcium 9.5 (8.4-10.2) mg/dL Total Bilirubin 0.50 (0.2-1.3) mg/dL AST 27 (14-36) U/L ALT 26 (0-35) U/L Alkaline Phosphatase 99 (38-126) U/L Serum Total Protein 7.8 (6.3-8.2) g/dL Albumin 4.5 (3.5-5.0) g/dL Amylase 64 (30-110) U/L Lipase 74 (23-300) U/L Serum HCG, Qual NEGATIVE (NEGATIVE) Urine Color (Yellow) Urine Appearance (Clear) Urine pH (4.6-8.0) Ur Specific [place] (1.005-1.030) Urine Protein (Negative) Urine Glucose (UA) (Negative) mg/dL Urine Ketones (Negative) Urine Blood (Negative) Urine Nitrite (Negative) Urine Bilirubin (Negative) Urine Urobilinogen (0.2) mg/dL Ur Leukocyte Esterase (Negative) U Hyaline Cast (Auto) (0-2) /LPF Urine Microscopic RBC (0-5) /HPF Urine Microscopic WBC (0-5) /HPF Ur Epithelial Cells (None Seen) /HPF Urine Bacteria (None Seen) /HPF Urine Culture Reflexed (NO) Chlamydia DNA Probe NOT DETECTED (NEGATIVE) N.gonorrhoeae DNA Probe NOT DETECTED (NEGATIVE) 05/20/22 05/20/22 Range/Units 10:45 10:41 WBC 10.2 (4.0-10.5) x10^3/uL RBC 4.90 (4.1-5.4) x10^6/uL Hgb 14.1 (12.0-16.0) g/dL Hct 43.3 (35-47) % MCV 88.4 (78-100) fL MCH 28.8 (26-32) pg MCHC 32.6 (32-36) g/dL RDW 12.2 (11.5-14.0) % Plt Count 335 (150-450) x10^3/uL MPV 9.8 (7.5-11.0) fL Gran % 57.7 (36.0-66.0) % Immature Gran % (Auto) 0.6 H (0.00-0.4) % Nucleat RBC Rel Count 0.0 (0.00-0.1) % Eos # (Auto) 0.48 (0-0.5) x10^3/uL Immature Gran # (Auto) 0.06 H (0.00-0.03) x10^3u/L Absolute Lymphs (auto) 2.83 (1.0-4.6) x10^3/uL Absolute Monos (auto) 0.84 (0.0-1.3) x10^3/uL Absolute Nucleated RBC 0.00 (0.00-0.01) x10^3u/L Lymphocytes % 27.9 (24.0-44.0) % Monocytes % 8.3 (0.0-12.0) % Eosinophils % 4.7 (0.00-5.0) % Basophils % 0.8 (0.0-0.4) % Absolute Granulocytes 5.87 (1.4-6.9) x10^3/uL Basophils # 0.08 (0-0.4) x10^3/uL Sodium (137-145) mmol/L Potassium (3.5-5.1) mmol/L Chloride (98-107) mmol/L Carbon Dioxide (22-30) mmol/L Anion Gap (5-15) MEQ/L BUN (7-17) mg/dL Creatinine (0.52-1.04) mg/dL Estimated GFR ML/MIN Glucose (74-106) mg/dL Calcium (8.4-10.2) mg/dL Total Bilirubin (0.2-1.3) mg/dL AST (14-36) U/L ALT (0-35) U/L Alkaline Phosphatase (38-126) U/L Serum Total Protein (6.3-8.2) g/dL Albumin (3.5-5.0) g/dL Amylase (30-110) U/L Lipase (23-300) U/L Serum HCG, Qual (NEGATIVE) Urine Color Yellow (Yellow) Urine Appearance Clear (Clear) Urine pH 5.0 (4.6-8.0) Ur Specific [place] 1.015 (1.005-1.030) Urine Protein Negative (Negative) Urine Glucose (UA) Negative (Negative) mg/dL Urine Ketones Negative (Negative) Urine Blood Trace (Negative) Urine Nitrite Negative (Negative) Urine Bilirubin Negative (Negative) Urine Urobilinogen 0.2 (0.2) mg/dL Ur Leukocyte Esterase Trace A (Negative) U Hyaline Cast (Auto) NONE SEEN (0-2) /LPF Urine Microscopic RBC 0-2 (0-5) /HPF Urine Microscopic WBC 3-5 (0-5) /HPF Ur Epithelial Cells None Seen (None Seen) /HPF Urine Bacteria None Seen (None Seen) /HPF Urine Culture Reflexed NO (NO) Chlamydia DNA Probe (NEGATIVE) N.gonorrhoeae DNA Probe (NEGATIVE) - Progress Progress Note: 05/20/22 12:25 Nursing note and vital signs reviewed No food or housing insecurities noted All lab results reviewed and shared w pt Pelvic US and CT ab-pelvis result reviewed and shared w pt No etiology of pt's pain obtained Pt refused pain meds during entire stay Pt to f/u w Dr. De La Paz 05/20/22 14:41 05/20/22 14:43 Counseled pt/family regarding: lab results, diagnosis, need for follow-up, rad results Medical Desision Making - Diagnostic Testing Radiological Interpretation: Reviewed by me, Discussed w/ radiologist - Risk of complications Low Risk: Low risk of morbidity from additional dx testing or treatment - Departure Departure Disposition: Home Clinical Impression: Abdominal pain Condition: Stable Critical Care Time: No Referrals: JAEL DE LA PAZ MD [Primary Care Provider] - Follow up/PCP as directed Instructions: Severe Abdominal Pain, Adult (DC) Additional Instructions: Follow up with your family MD Return to ER for increasing pain or temperature greater than 100.5
--- NOTE | 2022-05-20 13:11 | XRAY ---
Indication: Pelvic pain. IUD placement. Two-dimensional transvaginal pelvic sonogram performed. Comparison: None Uterus anteverted measuring 7.5 x 4.0 x 5.0 cm. Lower uterine segment demonstrates 4 mm nabothian cyst. Uterine cavity demonstrates IUD with the tip at the level of the fundus. Right ovary measures 3.2 x 2.8 x 3.6 ammeter and the left measures 3.1 x 1.8 x 2.0 cm. Normal follicular cysts and perfusion bilaterally. Tiny cul-de-sac fluid presumed physiologic. No suspicious adnexal mass. Impression: IUD in situ with tip at the level of the fundus. Tiny nabothian cyst and physiologic cul-de-sac fluid. Remaining transvaginal pelvic sonogram is negative.
[2022-05-20 13:13] VITALS: BP 104/69; PULSE 72
--- NOTE | 2022-05-20 13:29 | XRAY ---
Indication: Abdomen pain 1 month. Multiple contiguous axial images obtained through the abdomen and pelvis using 80 cc Isovue 370 contrast. Comparison: None Lung bases clear. Heart is not enlarged. Noncontrasted stomach and bowel loops appear nonobstructed with normal appendix. No free fluid/air. Mild diffuse fatty liver. Uterus demonstrates IUD in situ. Remaining liver, gallbladder, pancreas, spleen, adrenal glands, kidneys, ureters, bladder, and uterus are unremarkable. Very minimal aortoiliac calcifications. No AAA or pathologic retroperitoneal lymphadenopathy. Osseous structures intact with bilateral L5 spondylolysis without listhesis. Impression: 1. Mild fatty liver, L5 spondylolysis without listhesis, and uterine IUD in situ. 2. Remaining CT abdomen/pelvis with contrast exam is negative.
[2022-05-20 14:21] LABS: CHLAMYDIA DNA NOT DETECTED (NEGATIVE); GC DNA Probe NOT DETECTED (NEGATIVE)
== END 2022-05-20 14:13 | disposition home or self-care (01) ==
LOC: ED 10:17
DX: R10.84 Generalized abdominal pain (principal); R11.0 Nausea; Z79.899 Other long term (current) drug therapy; Z28.310 Unvaccinated for COVID-19; Z72.0 Tobacco use
CPT/HCPCS: 36000; 36415; 74177; 76830; 80053; 81001; 82150; 83690; 84703; 85025; 87491; 87591; 99284